=== PATIENT | female | born 1975 | race Caucasian/White ===

== ENCOUNTER 2019-07-29 00:25 | Emergency (ER) | payer BC ==
--- NOTE | 2019-07-29 01:02 | EDM.PDOC ---
ED HPI GENERAL MEDICAL PROBLEM - General Chief Complaint: Chest Pain Stated Complaint: chest pain Time Seen by Provider: 07/29/19 00:35 Source of Information: Reports: Patient History Limitations: Reports: No Limitations - History of Present Illness INITIAL COMMENTS - FREE TEXT/NARRATIVE: States that she has been having some chest pain that is midsternal with radiation to the left arm and the jaw. Denied any SOB with it or nausea or diaphoresis. Has been seen for menopausal symptoms and was recently started on hormones for it but she is only taking a 1/4 pill to start with. She is having frequent hot flashes. Not sleeping well with this. Denies stress overall or relationship issues. Mom had stents about 5 years ago. States that at times it feels like her heart is pounding really hard and possibly irregular. She has appt with Dr. Cruz at [facility] to discuss this and possibly change meds as she feels that some of her hot flashes etc are related to anxiety and not just menopausal. She states that she did have relief of the pain prior to arriving here and that she did have some enroute. Onset Date: 07/28/19 Onset Time: 21:30 Duration: Improving Location: Reports: Chest, Radiates to (left arm and jaw.) Quality: Reports: Ache Associated Symptoms: Denies: Nausea/Vomiting, Shortness of Breath - Related Data Allergies Allergy/AdvReac Type Severity Reaction Status Date / Time itraconazole [From Sporanox] Allergy Hives Verified 07/29/19 01:14 terbinafine [From Lamisil] Allergy Hives Verified 07/29/19 01:14 Home Meds: Home Meds Estrogens, Conjugated [Premarin] 0.155 mg PO DAILY 07/29/19 [History] Milk Thistle 150 mg PO WEEKLY 07/29/19 [History] Past Medical History HEENT History: Reports: None Cardiovascular History: Reports: Heart Murmur Other Cardiovascular History: "irregular heart rate" Respiratory History: Reports: None Gastrointestinal History: Reports: Colon Polyp Genitourinary History: Reports: None SENIOR MATERIALS SCIENTIST History: Reports: Other (See Below) Other SENIOR MATERIALS SCIENTIST History: endometrial ablassion for heavy bleeding Musculoskeletal History: Reports: Neck Pain, Chronic Neurological History: Reports: None Psychiatric History: Reports: Anxiety Endocrine/Metabolic History: Reports: None Hematologic History: Reports: Anemia Immunologic History: Reports: None Oncologic (Cancer) History: Reports: None Dermatologic History: Reports: None - Infectious Disease History Infectious Disease History: Reports: None - Past Surgical History GI Surgical History: Reports: Colonoscopy Female Surgical History: Reports: Endometrial Ablation, Other (See Below) Other Female Surgeries/Procedures: ovarian cyst Social & Family History - Family History Family Medical History: Noncontributory Cardiac: Reports: Stent (mother) - Tobacco Use Smoking Status *Q: Never Smoker - Caffeine Use Caffeine Use: Reports: Coffee - Living Situation & Occupation Living situation: Reports: , with Family Occupation: Employed ED ROS GENERAL - Review of Systems Review Of Systems: See Below Constitutional: Denies: Fever, Chills HEENT: Reports: No Symptoms Respiratory: Denies: Shortness of Breath Cardiovascular: Reports: Chest Pain. Denies: Syncope GI/Abdominal: Reports: Nausea. Denies: Vomiting : Reports: Other (hot flashes.) Musculoskeletal: Reports: No Symptoms Skin: Reports: No Symptoms Psychiatric: Reports: Anxiety ED EXAM, GENERAL - Physical Exam Exam: See Below Exam Limited By: No Limitations General Appearance: Alert, WD/WN, No Apparent Distress Ears: Normal External Exam, Normal Canal, Normal TMs Throat/Mouth: Normal Inspection, Normal Oropharynx Head: Atraumatic, Normocephalic Neck: Normal Inspection, Supple, Non-Tender, Full Range of Motion Respiratory/Chest: No Respiratory Distress, Lungs Clear, Normal Breath Sounds Cardiovascular: Normal Peripheral Pulses, Regular Rate, Rhythm, No Edema GI/Abdominal: Normal Bowel Sounds, Soft, Non-Tender, No Organomegaly Extremities: Normal Inspection, No Pedal Edema Neurological: Alert, Oriented Skin Exam: Warm, Dry, Intact Course - Vital Signs Last Recorded V/S: Last Vital Signs Temp 97.5 F 07/29/19 01:12 Pulse 69 07/29/19 01:12 Resp 12 07/29/19 01:12 BP 120/82 07/29/19 01:12 Pulse Ox 94 L 07/29/19 01:12 - Orders/Labs/Meds Orders: Active Orders 24 hr Category Date Time Status EKG Documentation Completion [RC] STAT Care 07/29/19 00:50 Active Chest 2V [CR] Stat Exams 07/29/19 00:49 Taken Labs: Laboratory Tests 07/29/19 07/29/19 07/29/19 Range/Units 00:48 00:48 00:48 WBC 6.3 (5.0-10.0) 10^3/uL RBC 5.15 (4.00-5.50) 10^6/uL Hgb 14.9 (12.0-16.0) g/dL Hct 43.8 (37.0-47.0) % MCV 85.0 (82.0-94.0) fL MCH 28.9 (27.0-32.0) pg MCHC 34.0 (33.0-38.0) g/dL RDW Coeff of Joshua 12.8 (11.0-15.0) % Plt Count 172 (150-400) 10^3/uL Neut % (Auto) 71.0 (35-85) % Lymph % (Auto) 20.9 (10-55) % [place] % (Auto) 6.2 (0-16) % Eos % (Auto) 1.4 (0-5) % Baso % (Auto) 0.5 (0-3) % Neut # (Auto) 4.49 (1.80-7.00) 10^3/uL Lymph # (Auto) 1.32 (1.00-4.80) 10^3/uL [place] # (Auto) 0.39 (0.00-0.80) 10^3/uL Eos # (Auto) 0.09 (0.00-0.45) 10^3/uL Baso # (Auto) 0.03 10^3/uL PT 10.7 (9.7-12.3) SEC INR 1.04 (0.92-1.18) APTT 28.2 (23.2-32.3) SEC Sodium 142 (136-145) mEq/L Potassium 3.5 (3.5-5.0) mEq/L Chloride 104 (98-106) mEq/L Carbon Dioxide 27 (21-32) mmol/L BUN 14 (7-18) mg/dL Creatinine 0.8 (0.6-1.0) mg/dL Est Cr Clr Drug Dosing 81.59 mL/min Estimated GFR (MDRD) > 60 (>=60) mL/min Glucose 110 H (75-99) mg/dL Calcium 9.5 (8.4-10.1) mg/dL Lactate Dehydrogenase 145 (100-190) U/L Creatine Kinase 58 (21-215) U/L Troponin I < 0.017 (0.00-0.06) ng/mL - Re-Assessments/Exams Free Text/Narrative Re-Assessment/Exam: 07/29/19 0120 Discussed normal labs, EKG, CXR with pt and . I feel that she needs to have stress test and possible holter to evaluate palpitations. She has appt with Dr. Cruz in [place] Friday to work this up further. Will forward this dictation and the labs, EKG and CXR report to her for review and further workup as she feels necessary. Departure - Departure Time of Disposition: 01:27 Disposition: Home, Self-Care 01 Condition: Good Clinical Impression: Atypical chest pain, Anxiety Referrals: PCP,Unknown [Primary Care Provider] - Forms: ED Department Discharge Additional Instructions: Follow up with primary care provider. Needs to have stress test to further evaluate the chest pain or possible holter for the feeling of irregular heart beat at times. If pain would reoccur then needs to return immediately. - Problem List & Annotations (1) Atypical chest pain SNOMED Code(s): 112007833 Code(s): R07.89 - OTHER CHEST PAIN Status: Acute Priority: High - Problem List Review Problem List Initiated/Reviewed/Updated: Yes - My Orders Last 24 Hours: My Active Orders 07/29/19 00:49 Chest 2V [CR] Stat 07/29/19 00:50 EKG Documentation Completion [RC] STAT - Assessment/Plan Last 24 Hours: My Active Orders 07/29/19 00:49 Chest 2V [CR] Stat 07/29/19 00:50 EKG Documentation Completion [RC] STAT
[2019-07-29 01:20] LABS: CHLORIDE,CL 104 mEq/L (98-106); SODIUM,NA 142 mEq/L (136-145)
== END 2019-07-29 01:33 | disposition home or self-care (01) ==
LOC: CC.ED 00:25
DX: R07.89 Other chest pain (principal); F41.9 Anxiety disorder, unspecified; Z88.8 Allergy status to other drugs, medicaments and biological substances
CPT/HCPCS: 36415; 71046; 80048; 82550; 83615; 84484; 85025; 85610; 85730; 93005; 99285-25